=== PATIENT | female | born 1950 | race Caucasian/White ===

== ENCOUNTER 2017-12-17 07:45 | Day surgery (SDC) | payer MEDICARE ==
[2017-12-10 16:16] VITALS: BP 124/69
[2017-12-10 16:29] LABS: BASOPHILS % (AUTO) 0.9 % (0.0-5.0); EOSINOPHILS % (AUTO) 3.7 % (0.0-8.0); HEMATOCRIT 43.5 % (36-48); LYMPHOCYTES % (AUTO) 41.9 % (21.0-51.0); MEAN CORPUSCULAR HEMOGLOBIN 29.8 pg (27.0-33.0); MEAN CORPUSCULAR HGB CONC 33.3 g/dL (32.0-36.0); MEAN CORPUSCULAR VOLUME 89.4 fL (79-99); MONOCYTES % (AUTO) 14.8 % (3.0-13.0); NEUTROPHILS % (AUTO) 38.7 % (40.0-77.0); NUCLEATED RED BLOOD CELLS 0.1 % (0.0-0.19); PLATELET COUNT (AUTO) 209 K/uL (130-400); RED BLOOD CELL COUNT(AUTO) 4.87 MIL/uL (4.00-5.50); RED CELL DISTRIBUTION WIDTH 13.7 % (11.0-15.5); WHITE BLOOD COUNT (AUTO) 3.8 K/uL (4.8-10.8)
[2017-12-10 16:39] LABS: CREATININE 0.9 mg/dL (0.5-1.5); POTASSIUM 4.1 mmol/L (3.5-5.1)
[2017-12-17] VITALS (15 sets, daily range): BP systolic 116–146; BP diastolic 58–80
[~2017-12-17] VITALS: Ht 168.9 cm; Wt 77.1 kg
[~2017-12-17 07:45] MED LIST: BUPIVACAINE/PF 0.5% 30ML VIAL ONE; CYAN10007 IJ; ESCI20TA PO; MIRA25TA PO; SODIUM CHLORIDE 0.9% 500ML 500 ML IV SCH; VANCOMYCIN 1GM+NS 250ML 250 ML IV SCH
[2017-12-17] MEDS ORDERED: LACTATED RINGERS 1000ML 1,000 ML IV ONE ×2 (08:10→08:11)
[2017-12-17] MEDS ORDERED: CEFAZOLIN SODIUM 1 GM VIAL ONE (08:10)
[2017-12-17] MEDS ORDERED: ONDANSETRON HCL 4 MG/2 ML VIAL ONE (08:22)
[2017-12-17] MEDS ORDERED: SODIUM CHLORIDE 0.9% 250 ML IV ONE (08:22)
[2017-12-17] MEDS ORDERED: DEXAMETHASONE SOD PHOSPHATE 10MG/ML 1ML VIAL ONE (08:22)
[2017-12-17] MEDS ORDERED: LIDOCAINE HCL MPF 1% 5ML VIAL ONE (08:22)
[2017-12-17] MEDS ORDERED: GLYCOPYRROLATE 0.2 MG/ML 5 ML VIAL ONE (08:23)
[2017-12-17] MEDS ORDERED: ROCURONIUM BROMIDE 10MG/1ML 5ML VL ONE (08:23)
[2017-12-17] MEDS ORDERED: MIDAZOLAM HCL 1 MG/ML 2ML VIAL ONE (08:23)
[2017-12-17] MEDS ORDERED: FENTANYL CITRATE PF 50 MCG/1 ML 2ML VIAL ONE (08:23)
[2017-12-17] MEDS ORDERED: PROPOFOL 10 MG/ML 20ML VIAL IV ONE (08:23)
[2017-12-17] MEDS ORDERED: LIDOCAINE HCL 2% JELLY 5 ML ONE (08:23)
[2017-12-17] MEDS ORDERED: LIDOCAINE PF 2% 5ML ABBOJECT ONE (08:23)
[2017-12-17] MEDS ORDERED: CLINDAMYCIN 600 MG/D5% WATER 50 ML IV ONE (08:38)
[2017-12-17] MEDS ORDERED: CETI-101 PO (08:41)
[2017-12-17] MEDS ORDERED: CLINDAMYCIN 600 MG/D5% WATER 50 ML IV SCH (09:15)
[2017-12-17] MEDS ORDERED: KETOROLAC TROMETHAMINE 30MG/ML ONE (10:05)
[2017-12-17] MEDS ORDERED: MEPERIDINE-PF 50 MG/ML SYG ONE (10:06)
== END 2017-12-17 12:10 | disposition home or self-care (01) ==
LOC: DAH 07:45
PROVIDERS: ATTEND Surgery
DX: K80.10 Calculus of gallbladder with chronic cholecystitis without obstruction (principal); Z88.0 Allergy status to penicillin; Z91.040 Latex allergy status; Z90.710 Acquired absence of both cervix and uterus; Z98.890 Other specified postprocedural states
CPT/HCPCS: 36415; 47562; 80048; 85025; 88304; A4450; A4649 ×2; C1769 ×3; J1100; J1885; J2001; J2175; J2250; J2405; J2704; J3010; J3370; J3490 ×5; J7030 ×2; J7120 ×2; J0690

== ENCOUNTER 2018-08-24 10:30 | Emergency (ER) | payer MEDICARE ==
[~2018-08-24 10:30] MED LIST changes: -BUPIVACAINE/PF 0.5% 30ML VIAL ONE; +CETI-101 PO; -SODIUM CHLORIDE 0.9% 500ML 500 ML IV SCH; -VANCOMYCIN 1GM+NS 250ML 250 ML IV SCH
[2018-08-24] MEDS ORDERED: ACETAMINOPHEN-CODEINE 300/30MG TAB ONE (11:04)
[2018-08-24] MEDS ORDERED: IBUPROFEN 600 MG TABLET ONE (11:04)
[2018-08-24] MEDS ORDERED: TETANUS/DIPHTHERIA TOXOID [ADULT] 0.5 ML VIAL IM ONE (11:04)
== END 2018-08-24 13:24 | disposition home or self-care (01) ==
LOC: EDH 10:30
DX: S92.512A Displaced fracture of proximal phalanx of left lesser toe(s), initial encounter for closed fracture (principal); S80.212A Abrasion, left knee, initial encounter; M25.571 Pain in right ankle and joints of right foot; M25.551 Pain in right hip; W18.39XA Other fall on same level, initial encounter; Y93.01 Activity, walking, marching and hiking; Y92.89 Other specified places as the place of occurrence of the external cause; Y99.8 Other external cause status
CPT/HCPCS: 28515; 73502; 73562; 73610; 73660; 90471; 90714

== ENCOUNTER 2018-10-29 23:22 | Emergency (ER) | payer MEDICARE ==
[2018-10-29 23:45] LABS: APPEARANCE,URINE Clear (CLEAR); BILIRUBIN,URINE Negative (NEGATIVE); COLOR,URINE Yellow (YELLOW); GLUCOSE, URINE (UA) Negative (NEGATIVE); KETONES,URINE Negative (NEGATIVE); LEUKOCYTE ESTERASE ,URINE Small (NEGATIVE); NITRATE,URINE Negative (NEGATIVE); OCCULT BLOOD,URINE Negative (NEGATIVE); PROTEIN,URINE Negative (NEGATIVE); UROBILINOGEN,URINE 0.2 mg/dL (0.2-1.0)
[2018-10-29 23:56] LABS: BACTERIA,URINE Few /HPF (None Seen); RBC,URINE 0-1 /HPF (0-1); SQUAMOUS EPITHELIAL CELL,UR Moderate /HPF (0-2)
[2018-10-30] MEDS ORDERED: ONDANSETRON HCL 4 MG/2 ML VIAL ONE (00:08)
[2018-10-30] MEDS ORDERED: MORPHINE SULFATE 4 MG/1ML SYG ONE (00:08)
[2018-10-30 00:11] LABS: BASOPHILS % (AUTO) 0.3 % (0.0-5.0); EOSINOPHILS % (AUTO) 1.5 % (0.0-8.0); HEMATOCRIT 41.1 % (36-48); LYMPHOCYTES % (AUTO) 24.3 % (21.0-51.0); MEAN CORPUSCULAR HEMOGLOBIN 29.3 pg (27.0-33.0); MEAN CORPUSCULAR HGB CONC 32.5 g/dL (32.0-36.0); MEAN CORPUSCULAR VOLUME 90.1 fL (79-99); MONOCYTES % (AUTO) 6.2 % (3.0-13.0); NEUTROPHILS % (AUTO) 67.7 % (40.0-77.0); PLATELET COUNT (AUTO) 196 K/uL (130-400); RED BLOOD CELL COUNT(AUTO) 4.56 MIL/uL (4.00-5.50); RED CELL DISTRIBUTION WIDTH 14.4 % (11.0-15.5); WHITE BLOOD COUNT (AUTO) 8.1 K/uL (4.8-10.8)
[2018-10-30 00:34] LABS: CREATININE 0.9 mg/dL (0.5-1.5); POTASSIUM 3.7 mmol/L (3.5-5.1)
[2018-10-30 00:38] LABS: ALBUMIN 3.6 g/dL (3.5-5.0); BILIRUBIN,TOTAL 0.2 mg/dL (0.2-1.0); TOTAL PROTEIN, SERUM 6.7 g/dL (6.0-8.3)
[2018-10-30] MEDS ORDERED: KETOROLAC TROMETHAMINE 30MG/ML ONE (01:00)
== END 2018-10-30 02:17 | disposition home or self-care (01) ==
LOC: EDH 23:22
DX: R16.0 Hepatomegaly, not elsewhere classified (principal); R10.11 Right upper quadrant pain; R10.12 Left upper quadrant pain; R10.13 Epigastric pain; F98.8 Other specified behavioral and emotional disorders with onset usually occurring in childhood and adolescence; Z90.49 Acquired absence of other specified parts of digestive tract; Z90.710 Acquired absence of both cervix and uterus; Z88.0 Allergy status to penicillin
CPT/HCPCS: 36415; 74176; 80053; 81001; 83690; 84484; 85025; 93005; 96374; 96375; 99284; J1885; J2270; J2405